=== PATIENT | male | born 1945 | race American Indian/Alaskan Native ===

== ENCOUNTER 2020-07-11 08:24 | Day surgery (SDC) | payer MEDICARE ==
[2020-07-11] MEDS ORDERED: ASPIRIN EC 325 MG TAB PO ONE (09:04)
[2020-07-11 09:47] LABS: Basophils % (Auto) 0.7 % (0.0-1.8); Hematocrit 40.5 % (35.5-45.6); Hemoglobin 13.6 gm/dl (11.8-15.2); Lymphocytes # (Auto) 1.5 K/mm3 (1.2-5.4); Lymphocytes % (Auto) 25.9 % (13.4-35.0); Mean Corpuscular HGB Conc 34 % (32-34); Mean Corpuscular Volume 99 fl (84-94); Monocytes # (Auto) 0.6 K/mm3 (0.0-0.8); Monocytes % (Auto) 10.5 % (0.0-7.3); Platelet Count 110 K/mm3 (140-440); Red Cell Distribution Width 14.1 % (13.2-15.2)
[2020-07-11 09:56] LABS: INR 1.09 (0.87-1.13)
[2020-07-11 09:59] LABS: Calcium 9.6 mg/dL (8.4-10.2)
[2020-07-11] MEDS: SODIUM CHLORIDE 0.9% 500 ML 500 ML IV SCH ×2 (11:03→12:07)
[2020-07-11] MEDS ORDERED: VERAPAMIL 5 MG/2 ML INJ ONE (11:36)
[2020-07-11] MEDS ORDERED: HEPARIN/NS 5000 UNIT/500ML 1,000 ML IR ONE (11:36)
[2020-07-11] MEDS: fentaNYL 100 MCG/2 ML INJ ONE ×3 (12:06→12:32)
[2020-07-11] MEDS: MIDAZOLAM 2 MG/2 ML INJ ONE ×3 (12:07→12:32)
[2020-07-11] MEDS: LIDOCAINE (2%) 20 MG/1 ML VIAL 20 ML MDV INFILTRATI ONE ×2 (12:07→12:29)
--- NOTE | 2020-07-11 13:42 | Discharge Summary ---
Short Stay Discharge Plan Activity: advance as tolerated Weight Bearing Status: Partial Weight Bearing Diet: low fat, low cholesterol, low salt, diabetic Wound: keep clean and dry Special Instructions: no heavy lifting (3 days), hold Metformin (48 HRS) Additional Instructions: HOLD METFORMIN 48HRS Follow up with: DARCI DHILLON JR, MD [Primary Care Provider] - 7 Days
[2020-07-11] MEDS ORDERED: traMADol 50 MG TAB PO PRN (14:00)
[2020-07-11] MEDS ORDERED: SODIUM CHLORIDE 0.9% 1000 ML 1,000 ML IV SCH (14:00)
[2020-07-11] MEDS ORDERED: HYDROcodone/ACETAMINOPHEN 5-325 MG TAB PO PRN (14:00)
[2020-07-11 16:40] VITALS: BP 121/67
--- NOTE | 2020-07-11 16:54 | Cardiac Catherization Report ---
CARDIAC CATHETERIZATION REPORT REASON FOR PROCEDURE: The patient is a 75-year-old man with aortic stenosis, who is recommended for right and left heart catheterization with coronary angiography for further assessment of aortic stenosis and coronary artery disease. PROCEDURES PERFORMED: 1. Right heart catheterization. 2. Left heart catheterization. 3. Selective left and right coronary angiography. 4. Left ventricle angiography. SEDATION TIME: Start 1229 hours, end 1256 hours. I personally supervised the administration of the moderate sedation and was present for the entire procedure. DESCRIPTION OF PROCEDURE: The patient was prepped and draped in a sterile fashion after informed consent. Right femoral artery and vein were both entered using the Seldinger technique. A 6-Indonesian sheath was placed in the artery and an 8-Ind[place]ian sheath in the vein. A [place]-Trixie catheter was then advanced to the pulmonary artery position. We then advanced a #4 right Eveline catheter across the stenosed aortic valve into the left ventricle. Simultaneous right and left heart filling pressures were then recorded. Cardiac output was measured using thermodilution method. The [place]-Trixie catheter was then withdrawn and right heart pressures were recorded on pullback. Left ventricular angiography was performed through the right Eveline catheter using a hand injection. The right Eveline was then withdrawn across the aortic valve and transaortic gradient was recorded. We then performed right coronary angiography. The catheter was then exchanged for a #4 left Eveline, which was used for left coronary angiography. The catheters were then removed, sheath removed, hemostasis achieved over the arterial site using an Angio-Seal device, and over the venous site using manual compression. The patient was returned to the postprocedure unit in stable condition. There were no complications. FINDINGS: HEMODYNAMICS: The mean right atrial pressure was 10. Right ventricular pressure was 50/12. Pulmonary artery pressure 50/25. The mean pulmonary artery wedge pressure was 25. Left ventricular end-diastolic pressure was 20-25. The cardiac output by thermodilution was measured several times, and the mean cardiac output over 5, measurements was 9.3. CORONARY ANGIOGRAPHY: The left main coronary artery contained mild irregularities. The left anterior descending artery contained a long segment of mild proximal to mid disease with and up to 30-50% luminal stenosis involving the origin of a medium sized mid diagonal branch. The first diagonal branch of the LAD was a large vessel that contained irregular atherosclerosis of its mid segment with an up to 40-50% luminal stenosis. The mid obtuse marginal branch of the circumflex artery contained a proximal, 80% stenosis. Otherwise, the rest of the circumflex artery contained mild luminal irregularities. The right coronary artery was dominant. This vessel contained mild atherosclerosis of its proximal segment. The mid segment was notable for a 75% stenosis just before the acute margin. Left ventricle appeared moderately dilated. There was moderately severe left ventricular systolic dysfunction, diffuse hypokinesis with a left ventricular ejection fraction of 30-35%. AORTIC STENOSIS: On pullback across the aortic valve, there was a [id number] gradient of 40 mmHg, and mean gradient of 30 mmHg. The Gorlin equation calculated only mild aortic stenosis, but this is likely an underestimation of the mitral valve area due to a likely erroneous high cardiac output measurement. CONCLUSION: 1. Moderate to moderately severe pulmonary hypertension with PA systolic pressure of 50. 2. At least moderate to moderately severe aortic stenosis with a mean transaortic gradient of 30. As noted above, cardiac output measurement by thermodilution is likely an overestimation of the true cardiac output, making the Gorlin valve area unreliable. 3. Multivessel coronary artery disease with moderate stenosis of the proximal to mid LAD, severe stenosis of the mid obtuse marginal and moderately severe stenosis of the mid right coronary artery. 4. Moderately severe left ventricular systolic dysfunction, ejection fraction 30-35%. RECOMMENDATION: In addition to echocardiographic assessment of aortic stenosis and left ventricular function, the patient is recommended for CT surgical evaluation for possible aortic valve replacement and coronary bypass. JOB# [id number] MAGO/WILMA
== END 2020-07-11 18:14 | disposition home or self-care (01) ==
LOC: CATHLABREC 08:24
PROVIDERS: ATTEND Internal Medicine Cardiovascular Disease
DX: I35.0 Nonrheumatic aortic (valve) stenosis (principal); I25.10 Atherosclerotic heart disease of native coronary artery without angina pectoris; I10 Essential (primary) hypertension; E03.9 Hypothyroidism, unspecified; I12.9 Hypertensive chronic kidney disease with stage 1 through stage 4 chronic kidney disease, or unspecified chronic kidney disease; E11.22 Type 2 diabetes mellitus with diabetic chronic kidney disease; N18.30 Chronic kidney disease, stage 3 unspecified; E78.5 Hyperlipidemia, unspecified; Z87.891 Personal history of nicotine dependence; Z79.899 Other long term (current) drug therapy; Z79.82 Long term (current) use of aspirin; Z98.890 Other specified postprocedural states; Z72.89 Other problems related to lifestyle; Z83.3 Family history of diabetes mellitus; Z82.49 Family history of ischemic heart disease and other diseases of the circulatory system
CPT/HCPCS: 36415; 80048; 85025; 85610; 85730; 93005; 93460; 99156; 99157; C1760; C1769; C1894; J1644; J2250; J3010; J7030; J7040; Q9967

== ENCOUNTER 2022-04-08 11:55 | Day surgery (SDC) | payer MEDICARE ==
[2022-04-06 12:04] LABS: Albumin 4.2 g/dL (3.9-5); Calcium 9.5 mg/dL (8.4-10.2)
[2022-04-06 12:08] LABS: Hematocrit 38.3 % (35.5-45.6); Hemoglobin 13.1 gm/dl (11.8-15.2); Mean Corpuscular HGB Conc 34 % (32-34); Mean Corpuscular Volume 97 fl (84-94); Red Blood Count 3.95 M/mm3 (3.65-5.03); Red Cell Distribution Width 14.6 % (13.2-15.2)
[2022-04-06 12:30] LABS: Platelet Count 86 K/mm3 (140-440)
[~2022-04-08 11:55] MED LIST: LACTATED RINGERS 1,000 ML IV SCH
[2022-04-08] MEDS ORDERED: ceFAZolin/Water 2 GM/20 ML 2 GM/20 ML SYRINGE IV ONE (12:20)
[2022-04-08] MEDS ORDERED: ceFAZolin/STERILE WATER 2 GM/20 ML SYRINGE IV SCH (12:30)
--- NOTE | 2022-04-08 13:43 | Anesthesia Consultation ---
Anesthesia Consult and Med Hx Date of service: 04/08/22 - Airway Anesthetic Teeth Evaluation: Good, Dentures (upper), Partials (lower) ROM Head & Neck: Adequate Mental/Hyoid Distance: Adequate Mallampati Class: Class II Intubation Access Assessment: Probably Good - Pulmonary Exam CTA: Yes - Cardiac Exam Cardiac Exam: RRR (systolic murmur) - Pre-Operative Health Status ASA Pre-Surgery Classification: ASA3 Proposed Anesthetic Plan: General - Pulmonary Hx Smoking: Yes (remote smoking hx; quit >30yrs) Hx Respiratory Symptoms: No - Cardiovascular System Hx Hypertension: Yes (took metoprolol and amlodipine this morning) Hx Coronary Artery Disease: Yes (medical management; normal EF) Hx Heart Attack/AMI: No Hx Percutaneous Transluminal Coronary Angioplasty (PTCA): No Hx Cardia Arrhythmia: Yes (hx paroxysmal a-fib per cardiology note) Hx Pacemaker: No Hx Internal Defibrillator: No Hx Valvular Heart Disease: Yes (s/p AVR now with mild to moderate stenosis of prosthesis; asymptomatic) - Central Nervous System CVA: No - Endocrine Hx Renal Disease: Yes (CKD 3) Hx Liver Disease: No Hx Non-Insulin Dependent Diabetes: Yes (diet controlled; reports A1c<6) Hx Hypothyroidism: Yes - Hematic Hx Anemia: No (chronic thrombocytopenia w/ prior neg heme/onc w/u per patient) - Other Systems Hx Obesity: Yes (BMI 31) - Additional Comments Anesthesia Medical History Comments: No hx anesthetic complications. Preop cardiac eval on chart reviewed.
--- NOTE | 2022-04-08 13:46 | Anesthesia Day of Surgery ---
Anesthesia Day of Surgery - Day of Surgery Patient Examined: Yes Patient H&P Reviewed: Yes Patient is NPO: Yes Beta Blockers: Yes (metoprolol today AM) Cardiac Clearance: Yes
[2022-04-08] MEDS ORDERED: propofoL 200 MG/20 ML VIAL IV ONE (15:13)
[2022-04-08] MEDS ORDERED: LIDOCAINE MPF (2%) 20 MG/1 ML VIAL 5 ML ONE (15:13)
[2022-04-08] MEDS ORDERED: fentaNYL 100 MCG/2 ML INJ ONE (15:13)
--- NOTE | 2022-04-08 15:43 | Post Operative Note ---
Date of procedure: 04/08/22 Pre-op diagnosis: stricture Post-op diagnosis: same Findings: as above Procedure: cysto dviu Anesthesia: LENY Surgeon: JOY CHOWDHURY Estimated blood loss: minimal Pathology: none Condition: stable Disposition: PACU
--- NOTE | 2022-04-08 15:45 | Discharge Summary ---
Short Stay Discharge Plan Activity: other (no strsining ) Weight Bearing Status: Full Weight Bearing Diet: low fat, low cholesterol, low salt Special Instructions: other (inc fluids ) Follow up with: DARCI DHILLON JR, MD [Primary Care Provider] - 7 Days JOY CHOWDHURY MD [Staff Physician] - 10 Days
[2022-04-08] MEDS ORDERED: IOHEXOL 300 MG/ML 100ML IV ONE (16:32)
[2022-04-08] MEDS ORDERED: FUROSEMIDE 40 MG/4 ML INJ ONE (16:41)
[2022-04-08] MEDS ORDERED: WATER FOR IRRIG STERILE 2000 ML IR ONE (16:56)
--- NOTE | 2022-04-08 18:08 | Post Anesthesia Evaluation ---
- Post Anesthesia Evaluation Patient Participated: Yes Airway Patent: Yes Stable Respiratory Function: Yes Nausea/Vomiting: No Temp > 96.8F: Yes Pain Manageable: Yes Adequeate Hydration: Yes Anesthesia Complications: No
[2022-04-08 18:45] VITALS: BP 159/76
--- NOTE | 2022-04-08 19:56 | Operative Report ---
DATE OF SURGERY: 04/08/2022 PREOPERATIVE DIAGNOSIS: Severe urethral stricture. POSTOPERATIVE DIAGNOSES: Severe urethral stricture with squamous changes and debris in the bladder. PROCEDURES: Urethrogram, cystourethroscopy, direct vision internal urethrotomy. SURGEON: Alphonso Waller MD ANESTHESIA: General. FINDINGS: This is a gentleman with progressive difficulty voiding. He had a DVIU about 10 years ago. He has done well. He is now 77, with debris coming from his urethra and difficulty voiding. DESCRIPTION OF PROCEDURE: The patient was brought to the operating room and placed on the operating table. Following the induction of anesthesia, he was placed in the lithotomy position, prepped and draped in the usual sterile fashion. Cystourethroscopy was carried out, but before that, we did a urethrogram, which showed some narrowing, but not terrible at the bulbomembranous junction. A wire coiled in the bladder, but when we looked inside the bladder before we got there, there was 1.5 cm membranous and bulbous urethral stricture. Even the meatus was tight. The patient had evidence of balanitis xerotica obliterans. We did a DVIU, got into the bladder and throughout the bladder, it was coated with a whitish exudate. At this point, we evacuated most of that out. Biopsies were taken and the patient tolerated the procedure well. A 22 catheter was placed. There was no need to do a retrograde at this point. The bladder was not very trabeculated, catheter easily placed and irrigated free. Later that, white debris was evacuated and brought to recovery in stable condition. TID: [id number] RECEIPT: [id number] REBECA/CATA
--- NOTE | 2022-04-09 07:05 | Fluoroscopy Report ---
3 fluoroscopic images from urethrogram FINDINGS: Total fluoroscopy time 23 seconds. Please see procedure note for evaluation and interpretat ion. Signer Name: Minesh Collins MD Signed: 04/09/2022 7:01 AM Workstation Name: [id number]
== END 2022-04-08 18:10 | disposition home or self-care (01) ==
LOC: OR 11:55
PROVIDERS: ATTEND Urology
DX: N35.812 Other bulbous urethral stricture, male (principal); I12.9 Hypertensive chronic kidney disease with stage 1 through stage 4 chronic kidney disease, or unspecified chronic kidney disease; E11.22 Type 2 diabetes mellitus with diabetic chronic kidney disease; N18.30 Chronic kidney disease, stage 3 unspecified; I25.10 Atherosclerotic heart disease of native coronary artery without angina pectoris; I35.0 Nonrheumatic aortic (valve) stenosis; I42.9 Cardiomyopathy, unspecified; E78.00 Pure hypercholesterolemia, unspecified; I10 Essential (primary) hypertension; E66.9 Obesity, unspecified; E03.9 Hypothyroidism, unspecified; Z88.8 Allergy status to other drugs, medicaments and biological substances; Z20.822 Contact with and (suspected) exposure to COVID-19; Z79.899 Other long term (current) drug therapy; Z79.82 Long term (current) use of aspirin; Z72.89 Other problems related to lifestyle; Z98.890 Other specified postprocedural states; Z68.31 Body mass index [BMI] 31.0-31.9, adult; Z95.2 Presence of prosthetic heart valve
CPT/HCPCS: 36415; 52276; 80053; 82962; 85027; 88305; C1769; J0690; J1940; J2704; J3010; J7120; U0003; 74450